=== PATIENT | male | born 1990 ===

== ENCOUNTER 2018-09-07 06:25 | Emergency (ER) | payer SELFPAY ==
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
== END 2018-09-07 06:55 | disposition home or self-care (01) ==
LOC: MW.ED 06:25
DX: Z04.71 Encounter for examination and observation following alleged adult physical abuse (principal)
CPT/HCPCS: 99283